=== PATIENT | female | born 1970 | race Caucasian/White ===

== ENCOUNTER 2024-10-04 08:19 | Emergency (ER) | payer SELFPAY ==
[2024-10-04] MEDS ORDERED: Albuterol 2.5 MG (0.5 mL) NEB ONE (08:35)
[2024-10-04] MEDS ORDERED: Dexamethasone 10 MG/ML VIAL ONE (08:36)
== END 2024-10-04 09:20 | disposition home or self-care (01) ==
LOC: ERS 08:19
DX: R05.1 Acute cough (principal); R06.2 Wheezing
CPT/HCPCS: 96372; J1100; J7611; J7620

== ENCOUNTER 2024-10-21 14:00 | Emergency (ER) | payer SELFPAY ==
[2024-10-21] MEDS ORDERED: Magnesium 2 GM/50 ML BAG (IN WATER) ONE (14:24)
[2024-10-21] MEDS ORDERED: Albuterol 2.5 MG (0.5 mL) NEB ONE (14:35)
[2024-10-21] MEDS ORDERED: Ipratropium Bromide 2.5 ml Neb ONE (14:36)
[2024-10-21 14:44] LABS: #Basophils 0.09 10x3/uL (0.0-0.2); #Eosinophils 0.53 10x3/uL (0.0-0.7); #Monocytes 0.67 10x3/uL (0.11-0.59); #Neutrophils 4.29 10x3/uL (1.40-6.50); %Basophils 1.1 % (0.0-1.0); %Eosinophils 6.5 % (0.0-10.0); %Lymphocytes 31.5 % (21.0-51.0); %Monocytes 8.2 % (0.0-10.0); %Neutrophils 52.2 % (42.0-75.0); Hematocrit 36.2 % (36.0-47.0); Hemoglobin 11.9 g/dL (12.0-16.0); Mean Corpuscular Hemoglobin 28.3 pg (27.0-31.0); Mean Corpuscular Volume 86.0 fL (78.0-98.0); Platelet Count 303 10x3/uL (130-400); Red Blood Cell (RBC) Count 4.21 mill/uL (4.20-5.40); White Blood Cell (WBC) Count 8.20 10x3/uL (4.8-10.8)
[2024-10-21 15:04] LABS: Anion Gap 15 mmol/L (10-20); BUN (Urea Nitrogen) 13 mg/dL (9.8-20.1); Calc. Creatinine Clearance 0 mL/min (70-130); Carbon Dioxide 23 mmol/L (22-29); Chloride 105 mmol/L (98-107); Potassium 4.2 mmol/L (3.5-5.1); Sodium 139 mmol/L (136-145)
[2024-10-21 15:05] LABS: ALT (SGPT) 20 U/L (Less than 34); AST (SGOT) 27 U/L (11-34); Albumin 3.7 g/dL (3.1-4.5); Alkaline Phosphatase 135 U/L (40-110); Bilirubin, Total 0.3 mg/dL (0.3-1.2); Calcium 9.2 mg/dL (7.8-10.44); Globulin 3.4 g/dL (2.4-3.5); Glucose 94 mg/dL (70-105); Magnesium 2.1 mg/dL (1.6-2.6)
== END 2024-10-21 15:41 | disposition home or self-care (01) ==
LOC: ERS 14:00
DX: J45.901 Unspecified asthma with (acute) exacerbation (principal); J44.89 Other specified chronic obstructive pulmonary disease; Z87.891 Personal history of nicotine dependence; Z79.51 Long term (current) use of inhaled steroids; Z79.899 Other long term (current) drug therapy
CPT/HCPCS: 71045; 80053; 83735; 83880; 84484; 85025; 87428; 93005; 94640; 96365; 96375; J2919; J3475; J7611; J7644